=== PATIENT | female | born 1950 | race Caucasian/White ===

== ENCOUNTER 2018-06-02 16:45 | Emergency (ER) | payer MEDICARE, OTHER ==
[~2018-06-02] VITALS: Ht 154.9 cm; Wt 98.9 kg
[~2018-06-02 16:45] MED LIST: CIPRO500 M1 PO; DYAZIDE 37.5-21 EACH PO; FLAGYL500 MG PO; GLUCOPHAGE XR750 MG PO; GLUCOTROL5 MG PO; HYDROCODONE-APA1 TA1 PO; LUMIGAN2.5 M1 OPHTHALMIC; METFORMIN HCL500 MG PO; ONDANSETRON HCL4 M2 PO; TENORMIN50 MG PO
[2018-06-02] MEDS ORDERED: BUTALB-APAP-CA1 EACH PO (16:59)
[2018-06-02 18:57] VITALS: BP 177/64
== END 2018-06-02 18:58 | disposition home or self-care (01) ==
LOC: M.ERS 16:45
DX: S00.81XA Abrasion of other part of head, initial encounter (principal); S60.511A Abrasion of right hand, initial encounter; M25.561 Pain in right knee; E11.9 Type 2 diabetes mellitus without complications; I10 Essential (primary) hypertension; E78.00 Pure hypercholesterolemia, unspecified; Z88.8 Allergy status to other drugs, medicaments and biological substances; W01.0XXA Fall on same level from slipping, tripping and stumbling without subsequent striking against object, initial encounter; Y93.89 Activity, other specified; Y92.89 Other specified places as the place of occurrence of the external cause; Y99.8 Other external cause status